=== PATIENT | male | born 1995 | race Two or more races ===

== ENCOUNTER 2020-09-06 14:41 | Emergency (ER) | payer MEDICAID, OTHER, SELFPAY ==
[2020-09-06 15:01] VITALS: BP 121/77; PULSE 78; RESP 16; TEMP 36.4; O2SAT 98; BMI 25.0
[2020-09-06] MEDS: Ibuprofen 800 MG TABLET PO (15:16)
[2020-09-06] MEDS: Lidocaine HCl 2 % MPF 5 ML VIAL INFILTRATI ×2 (15:16→15:17)
--- NOTE | 2020-09-06 16:05 | ED_ITS ---
HPI - Wound/Laceration General Chief Complaint: Wound/Laceration Stated Complaint: L HAND LAC Time Seen by Provider: 09/06/20 16:05 Source: patient Mode of arrival: ambulatory Limitations: no limitations History of Present Illness HPI narrative: Patient presents to ED for left 5th finger laceration caused by stove today. Related Data Allergies Allergy/AdvReac Type Severity Reaction Status Date / Time No Known Allergies Allergy Unverified 07/23/20 19:23 [No Known Allergies*] Review of Systems 2 Constitutional: Constitutional: Reports as per HPI and Reports no additional constitutional complaints Eyes: Eyes: Reports as per HPI and Reports no additional eye complaints ENT: Reports system reviewed and no additional complaints, except as documented and Reports as per HPI Cardiovascular: Cardiovascular: Reports as per HPI and Reports no additional cardiovascular complaints Respiratory: Respiratory: Reports as per HPI and Reports no additional respiratory complaints Gastrointestinal: Gastrointestinal: Reports as per HPI and Reports no additional gastrointestinal complaints Genitourinary: Genitourinary: Reports no additional male genitourinary complaints and Reports as per HPI Musculoskeletal: Musculoskeletal: Reports no additional musculoskeletal complaints and Reports as per HPI Comments: Left 5th finger laceration Neurologic: Reports system reviewed and no additional complaints, except as documented Psychiatric: Psychiatric: Reports no additional psychiatric complaints and Reports as per HPI [facility] Past Medical History Medical History (Updated 09/06/20 @ 16:13 by LEODAN Yuan) No known health problems Social History Social History Smoking Status: Never smoker Use of substances other than those prescribed or required for medical reasons: No Advance Directives: No Advance Directives Information Provided: No Physical Exam Vital Signs: Vital Signs: Vital Signs Temp Pulse Resp BP Pulse Ox 09/06/20 15:01 97.5 F 78 16 121/77 98 Body Mass Index 25.0 Const: General: cooperative, healthy appearing and comfortable Orientation/consciousness: patient oriented x3 HENMT: Head: Yes normal to inspection and Yes No palpable skull fracture present Eyes: General: appearance normal, both eyes and all related structures Neck: Neck: Yes normal visual inspection and Yes full ROM Chest: Chest palpation & inspection: normal inspection of the chest and normal palpation of entire chest wall Resp: Effort & Inspection: normal respiratory effort and able to speak in complete sentences Cardio: Jugular venous distension: no JVD Heart sounds: S1 normal heart sound present and S2 normal heart sound present GI: Inspection: Yes normal to inspection and No abdominal wall ecchymosis Palpation (GI): Soft to palpation, not firm, nontender, no guarding and not rigid : General: No CVA tenderness and Yes no CVA tenderness Back/Spine/Pelvis: Back: no CVA tenderness, No CVA tenderness and No back tenderness Skin: Trauma: laceration ( left 5th finger 1 cm) Neuro: General: patient oriented x3, gait normal and CN's II-XI intact bilaterally Cranial nerves: Yes CN's II-XII intact bilaterally Extrem: Other: left 5th finger 1 cm laceration/tear. Patient has complete range of motion of finger and rest of other fingers on the hand. left Third finger abrasion. Capillary refill is intact. History and physical exam deos not indicate tendon injury. Course Course Course Narrative: Patient will have laceration repair. Reevaluation(s) Reevaluation #1: Wound cleaned with Betadine and chloride normal saline. 5 mL of lidocaine 2% was used to anesthetize left 5th finger. Two sutures were placed 1 cm wound. Skin was romero / weak/and friable. Patient informed once sutures removed skin may fall off and re-grow. Sutures placed to prevent infection Time: 16:11 MDM - Wound/Laceration MDM Narrative Medical decision making narrative: laceration repair Discharge Plan Discharge Clinical Impression: Laceration Patient Disposition: Home, Self-Care Instructions: Finger Laceration (ED), Skin Tear (ED) Additional Instructions: return to the ED for any swelling, redness, pus discharge, foul odor, fever, chills, inability to move finger, or any other concerning symptoms. Sutures should be removed in 9 days at your PCP or ED Stand Alone Forms: Work/School Release Interventions: ED Discharge Assessment Last Done: 09/06/20 16:24 Discharge Date/Time: 09/06/20 16:42 Print Language: Montserratian
--- NOTE | 2020-09-06 16:18 | PC.NURSE ---
CLEANED HAND, PUT A DRY STERILE DRESSING ON L PINKY FINGER.
== END 2020-09-06 16:42 | disposition home or self-care (01) ==
PROVIDERS: Emergency Provider Emergency Medicine
DX: S61.217A Laceration without foreign body of left little finger without damage to nail, initial encounter (principal); S60.417A Abrasion of left little finger, initial encounter; M79.642 Pain in left hand; W26.9XXA Contact with unspecified sharp object(s), initial encounter; Y93.9 Activity, unspecified; Y92.009 Unspecified place in unspecified non-institutional (private) residence as the place of occurrence of the external cause; Y99.9 Unspecified external cause status
CPT/HCPCS: 12001; 90471; 90715; 99283; 99284

== ENCOUNTER 2021-01-23 16:32 | Emergency (ER) | payer MEDICAID, OTHER, SELFPAY ==
[2021-01-23 18:12] VITALS: BP 114/67; PULSE 58; RESP 20; TEMP 37.1; O2SAT 98; BMI 29.6
--- NOTE | 2021-01-23 18:47 | ED.GENADULT ---
HPI - General Adult General Chief complaint: Weakness Stated complaint: headache, weakness Time Seen by Provider: 01/23/21 18:15 Source: patient Mode of arrival: ambulatory Limitations: no limitations History of Present Illness HPI narrative: Patient with multiple complaints had some cold symptoms for last few days complaining of weakness fatigue no fever no cough no shortness of breath Related Data Allergies Allergy/AdvReac Type Severity Reaction Status Date / Time No Known Allergies Allergy Unverified 07/23/20 19:23 [No Known Allergies*] Review of Systems Review of Systems: Yes all other systems are reviewed and are negative [facility] Past Medical History Medical History No known health problems Social History Social History Smoking Status: Never smoker Advance Directives: No Advance Directives Information Provided: No Physical Exam Vital Signs: Vital Signs: Last Vital Signs Temp 98.7 F 01/23/21 18:12 Pulse 58 01/23/21 18:12 Resp 20 01/23/21 18:12 BP 114/67 01/23/21 18:12 Pulse Ox 98 01/23/21 18:12 Body Mass Index 29.6 Appearance: Alert. Oriented X3. No acute distress. Eyes: Pupils equal, round and reactive to light. ENT: Pharynx normal. Neck: Normal inspection. Neck supple. CVS: Normal heart rate and rhythm. Pulses normal. Respiratory: No respiratory distress. Breath sounds normal. Abdomen: Soft and nontender. Bowel sounds are present, no mass palpable, no CVA tenderness Skin: Skin warm and dry. Normal skin color. Normal skin turgor. Extremities: No lower extremity edema. Neuro: Oriented X 3. No motor deficit. No sensory deficit. Medical Decision Making Lab Data Lab results reviewed: Yes I reviewed the patient's lab results. Labs: Lab Results 01/23/21 Range/Units 19:22 COVID-19 (LUÍS) Positive A (Negative) COVID-19 Clin Com See Note Discharge Plan Discharge Clinical Impression: COVID-19 Patient Disposition: Home, Self-Care Instructions: COVID-19 (Coronavirus Disease 2019) (ED) Additional Instructions: Care and cautions advised. Keep social distancing as advised Interventions: ED Discharge Assessment Last Done: 03/20/21 19:44 Discharge Date/Time: 01/23/21 19:45
[2021-01-23 19:34] LABS: COVID-19 Test Positive (Negative)
== END 2021-01-23 19:45 | disposition home or self-care (01) ==
PROVIDERS: Emergency Provider Internal Medicine
DX: U07.1 COVID-19 (principal); R51.9 Headache, unspecified
CPT/HCPCS: 36415; 87635; 99282

== ENCOUNTER 2021-05-24 21:18 | Emergency (ER) | payer MEDICAID, OTHER, SELFPAY ==
--- NOTE | ~2021-05-24 | XR_ITS ---
EXAMINATION: XR FINGER, LEFT, index finger CLINICAL INFORMATION: Finger laceration COMPARISON: None TECHNIQUE: 3 views of the left index finger. FINDINGS: There is no radiopaque foreign body. Bone and joint are normal. XR/XR finger LT min 2V IMPRESSION: Normal left index finger. No radiopaque foreign body.
[2021-05-24 21:43] VITALS: BP 115/69; PULSE 52; RESP 18; TEMP 36.9; O2SAT 98; BMI 26.6
--- NOTE | 2021-05-24 23:00 | ED_ITS ---
HPI - Wound/Laceration General Chief Complaint: Wound/Laceration Stated Complaint: Finger laceration Time Seen by Provider: 05/24/21 22:54 Source: patient Mode of arrival: ambulatory Limitations: language barrier History of Present Illness HPI narrative: A 25-year-old male with no significant past medical history presents with laceration to his left index finger. He accidentally cut himself on a kiki knife, applied a bandage but was unable to control the bleeding. He does not know when his last Tdap vaccine was updated. Does not describe any other symptoms, and has full range of motion to the extremity. Onset (ago): hour(s) (Within the hour of arrival) Extremity Location: left: hand (Index finger) Place: home Patient tetanus UTD: No Context: accidental Associated symptoms: pain (And bleeding) Treatments prior to arrival: bandage Related Data Allergies Allergy/AdvReac Type Severity Reaction Status Date / Time No Known Allergies Allergy Unverified 07/23/20 19:23 [No Known Allergies*] Review of Systems Review of Systems: Constitutional: No Fever, No Chills ENT/Mouth: No Ear Pain, No Hoarseness, No sore throat Eyes: No Eye Pain, No Swelling, No Redness, No Foreign Body Cardiovascular: No Chest Pain, No SOB Respiratory: No Cough, No Dyspnea Gastrointestinal: No Nausea, No Vomiting, No Diarrhea, No abdominal Pain Genitourinary: No Dysuria, No Hematuria Musculoskeletal: positive left index finger pain, No Myalgias, No Joint Swelling Skin: Positive left index finger laceration, No rash Neuro: No Weakness, No Numbness, No Paresthesias, No Loss of Consciousness, No Dizziness, No Headache Psych: No Anxiety/Panic, No Depression Heme/Lymph: no easy bruising, no Lymphadenopathy Endocrine: No Polyuria, No Polydipsia Yes all other systems are reviewed and are negative [facility] Past Medical History Attestation statement: The following information was validated with the patient. Source: old records reviewed Medical History No known health problems Social History Social History Advance Directives: No Advance Directives Information Provided: No Physical Exam Vital Signs: Vital Signs: Last Vital Signs Temp 98.5 F 05/24/21 21:43 Pulse 52 05/24/21 21:43 Resp 18 05/24/21 21:43 BP 115/69 05/24/21 21:43 Pulse Ox 98 05/24/21 21:43 Body Mass Index 26.6 Appearance: Alert. Oriented X3. No acute distress. Eyes: Pupils equal, round and reactive to light. ENT: Pharynx normal. Neck: Normal inspection. Neck supple. CVS: Normal heart rate and rhythm. Pulses normal. Respiratory: No respiratory distress. Breath sounds normal. Abdomen: Soft and nontender. Skin: Positive 3 cm laceration across the tip of the left index finger, Skin warm and dry. Normal skin color. Normal skin turgor. Extremities: No lower extremity edema. Neuro: No motor deficit. No sensory deficit. Course Course Course Narrative: 25-year-old male presents with laceration to left index finger. Tdap was updated, x-rays negative for fracture, foreign body or bone involvement. Patient has full range of motion to all extremities, no indication of tendon injury, brisk capillary refill. No nail involvement. Prepped and draped in sterile fashion. Irrigated with copious amounts of normal saline with Betadine cleanse. Approximately 10 mL of blood loss. Please refer to procedure note for full details. Approximately 30 minute status post laceration repair, patient continues with brisk capillary refill, full range of motion, indication of tendon injury, patient tolerated procedure well. Patient verbalized understanding of and agrees to plan of care discharge home. sanitary engineering teacher utilized for all correspondence. Google translate utilized for discharge instructions. Procedures Laceration Laceration 1: Site: hand Side (If applicable): left (Index finger) Size (cm): 3 Description: linear Depth: simple, single layer Local Anesthetic: lidocaine 2% Amount of anesthesia used (mL): 4 Pre-repair: wound explored, irrigated extensively and deep structures intact Skin layer closed with: nylon Size (cm): 4-0 Number of sutures: 8 Technique: simple, interrupted MDM - Wound/Laceration Differential Diagnosis Differential diagnosis: Likely laceration Medical Records Attestation: I reviewed the patient's medical records. Discharge Plan Discharge Clinical Impression: Laceration Patient Disposition: Home, Self-Care Instructions: Diphtheria/Acellular Pertussis/Tetanus Booster Vaccine (Tdap) (By..., Care For Your Stitches (ED), Finger Laceration (ED) Additional Instructions: Evalu? la laceraci?n del dedo ?ndice patrick. Colocamos 8 suturas. Regrese en 10 d?as para que le quiten las suturas. Si nota signos o s?ntomas de infecci?n, regrese antes. Siga las instrucciones para el cuidado de las heridas. Seth por elegir shalom departamento de emergencias para green evaluaci?n. Kt un seguimiento con green m?dico de atenci?n primaria seg?n sea necesario. Regrese al departamento de emergencias por cualquier s?ntoma nuevo, preocupante o que empeore You evaluated for laceration to the left index finger. We placed 8 sutures. Please return in 10 days to have sutures removed. If you notice signs or symptoms of infection please return sooner. Please follow wound care instructions. Thank you for choosing this emergency department for evaluation. Please follow-up with primary care physician as needed. Return to the emergency department for any new, concerning, or worsening symptoms.
[2021-05-24] MEDS: Lidocaine HCl 2 % MPF 5 ML VIAL SUBCUT (23:18)
[2021-05-24] MEDS: Diphth,Pertus(ACell),Tet Adult 0.5 ML SYRINGE IM (23:19)
== END 2021-05-25 00:47 | disposition home or self-care (01) ==
PROVIDERS: Emergency Provider Internal Medicine
DX: S61.211A Laceration without foreign body of left index finger without damage to nail, initial encounter (principal); W26.0XXA Contact with knife, initial encounter; Y93.9 Activity, unspecified; Y92.009 Unspecified place in unspecified non-institutional (private) residence as the place of occurrence of the external cause; Y99.9 Unspecified external cause status
CPT/HCPCS: 12002; 73140; 90471; 90715; 99283; 99284

== ENCOUNTER 2021-05-31 09:27 | Emergency (ER) | payer MEDICAID, OTHER, SELFPAY ==
[2021-05-31 09:33] VITALS: BP 111/54; PULSE 57; RESP 16; TEMP 36.2; O2SAT 98; BMI 34.2
--- NOTE | 2021-05-31 09:53 | ED_ITS ---
HPI - Extremity Problem General Chief complaint: Extremity Injury, Upper Stated complaint: suture removal Time Seen by Provider: 05/31/21 09:53 Source: patient Mode of arrival: ambulatory Limitations: no limitations History of Present Illness HPI Narrative: Patient had a laceration repair done 8 days ago and is here for suture removal. No complaints Related Data Allergies Allergy/AdvReac Type Severity Reaction Status Date / Time No Known Allergies Allergy Verified 05/31/21 09:35 [No Known Allergies*] Review of Systems Review of Systems: Yes all other systems are reviewed and are negative Constitutional: Constitutional: Reports no additional constitutional complaints, Denies body ache(s), Denies chills, Denies fever(s), Denies headache(s) and Denies weakness Eyes: Eyes: Reports no additional eye complaints and Denies change in vision ENT: Reports system reviewed and no additional complaints, except as documented, Denies dizziness, Denies headache(s), Denies nasal congestion, Denies nasal discharge and Denies neck pain Cardiovascular: Cardiovascular: Reports no additional cardiovascular complaints, Denies chest pain, Denies leg edema and Denies dyspnea Respiratory: Respiratory: Reports no additional respiratory complaints, Denies cough and Denies dyspnea Gastrointestinal: Gastrointestinal: Reports no additional gastrointestinal complaints, Denies abdominal pain, Denies diarrhea, Denies nausea and Denies vomiting Genitourinary: Genitourinary: Denies urinary incontinence Musculoskeletal: Musculoskeletal: Reports no additional musculoskeletal c omplaints, Denies back pain, Denies arthralgias, Denies joint swelling, Denies neck pain, Denies numbness and Denies tingling Integumentary/Breasts: Skin/Breast: Reports system reviewed and no additional complaints, except as docu and Denies rash Neurologic: Reports system reviewed and no additional complaints, except as documented, Denies Abnormal speech present, Denies dizziness, Denies headache(s), Denies numbness, Denies tingling and Denies weakness PMFSH Past Medical History Attestation statement: The following information was validated with the patient. Source: old records reviewed and nursing notes reviewed Medical History No known health problems Social History Social History Advance Directives: No Advance Directives Information Provided: No Physical Exam Vital Signs: Vital Signs: Last Vital Signs Temp 97.1 F 05/31/21 09:33 Pulse 57 05/31/21 09:33 Resp 16 05/31/21 09:33 BP 111/54 L 05/31/21 09:33 Pulse Ox 98 05/31/21 09:33 Body Mass Index 34.2 Const: General: cooperative, healthy appearing, comfortable and no acute distress Orientation/consciousness: patient oriented x3 Limitations: no limitations HENMT: Head: Yes normal to inspection Ears: hearing grossly normal bilaterally General nose exam: Normal external nose present Face and sinus: Yes normal facial exam Mouth: Normal oral and palatal mucosa present Throat: Yes posterior oropharynx normal Eyes: General: appearance normal, both eyes and all related structures Pupils: Equal, round and reactive pupils present Neck: Neck: Yes normal visual inspection Chest: Chest palpation & inspection: normal inspection of the chest Resp: Effort & Inspection: normal respiratory effort Auscultation: clear to auscultation bilaterally Cardio: Rate: regular rate Rhythm: regular rhythm Peripheral pulses: Peripheral pulses 2+ throughout GI: Inspection: Yes normal to inspection Palpation (GI): Soft to palpation and nontender Auscultation: normal bowel sounds Back/Spine/Pelvis: Thoracic/Lumbar Spine: thoracic and lumbar spine normal to inspection Skin: General skin exam: no rashes or lesions noted Neuro: General: patient oriented x3, no focal motor deficits and normal sensation to monofilament Cranial nerves: Yes Equal, round and reactive pupils present Cognition (Neuro): normal cognition Speech: No Abnormal speech present Gait exam (Neuro): Normal gait present Motor exam (neuro): 5/5 motor strength present throughout Extrem: Other: To the dorsal aspect of the left index finger sutures are present Full range of motion. Sensation intact distally General: Yes normal to i nspection Course Course Course Narrative: Sutures removed. See procedure note. Patient well-appearing. Reviewed worrisome signs and symptoms and when to return to the emergency department. Comfortable discharge home. Procedures Procedure Narrative Procedure Narrative: Eight sutures removed from the left index finger. Area cleansed with water and hydrogen peroxide. Dressing placed Discharge Plan Discharge Clinical Impression: Visit for suture removal Patient Disposition: Home, Self-Care Instructions: Stitches Removal (ED) Referrals: Physician,Unknown [Primary Care Provider] - 2 days Interventions: ED Discharge Assessment Last Done: 05/31/21 10:07 Discharge Date/Time: 05/31/21 10:08
== END 2021-05-31 10:08 | disposition home or self-care (01) ==
PROVIDERS: Emergency Provider Emergency Medicine Emergency Medical Services
DX: Z48.02 Encounter for removal of sutures (principal); S61.211D Laceration without foreign body of left index finger without damage to nail, subsequent encounter; W45.8XXD Other foreign body or object entering through skin, subsequent encounter
CPT/HCPCS: 99283

== ENCOUNTER 2021-06-16 18:35 | Emergency (ER) | payer MEDICAID, OTHER, SELFPAY ==
[2021-06-16 19:18] VITALS: BP 112/65; PULSE 68; RESP 16; TEMP 36; O2SAT 96; BMI 28.4
[2021-06-16 21:47] VITALS: BP 110/68; PULSE 56; RESP 16; O2SAT 98
[2021-06-16 21:56] LABS: Influenza A PCR NEGATIVE (Negative); Influenza B PCR NEGATIVE (Negative); Resp Syncy Virus RNA Qual PCR NEGATIVE (Negative); SARS COV2 PCR INHOUSE NEGATIVE (Negative)
--- NOTE | 2021-06-16 22:28 | ED.GENADULT ---
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 Now feeling slightly better drinking enough fluids urinating well. No light sensitivity no history of migraines in the past Related Data Allergies Allergy/AdvReac Type Severity Reaction Status Date / Time No Known Allergies Allergy Verified 06/16/21 19:23 [No Known Allergies*] Review of Systems Review of Systems: Yes all other systems are reviewed and are negative [facility] Past Medical History Medical History No known health problems Social History Social History Advance Directives: No Advance Directives Information Provided: No Physical Exam Vital Signs: Vital Signs: Last Vital Signs Temp 96.8 F 06/16/21 19:18 Pulse 56 06/16/21 21:47 Resp 16 06/16/21 21:47 BP 110/68 06/16/21 21:47 Pulse Ox 98 06/16/21 21:47 Body Mass Index 28.4 Appearance: Alert. Oriented X3. No acute distress. Eyes: PERRLA, No Nystagmus ENT: Pharynx normal. Oral Mucosa moist Neck: Normal inspection. Neck supple. CVS: Normal heart rate and rhythm. Pulses normal. Respiratory: No respiratory distress. Equal air entry bilateral, no wheezing/rales/rhonchi Abdomen: Soft and nontender. Bowel sounds are present, no mass palpable, no CVA tenderness Skin: Skin warm and dry. Normal skin color. Normal skin turgor. Extremities: No lower extremity edema. No calf tenderness Neuro: Oriented X 3. No motor deficit. No sensory deficit.No cerebellar signs , cranial nerves II-XII intact Medical Decision Making MDM Narrative Medical decision making narrative: Patient's symptoms likely from Heat exhaustion feeling better since he is indoor will give him p.o. fluids checked the urine Lab Data Lab results reviewed: Yes I reviewed the patient's lab results. Labs: Lab Results 06/16/21 06/16/21 Range/Units 21:08 22:39 Urine Color YELLOW Urine Appearance CLEAR Urine pH 6.5 (5.0-8.0) Ur Specific [place] 1.025 (1.005-1.025) Urine Protein TRACE (NEG-TRACE) MG/DL Urine Glucose (UA) NEG (NEG) MG/DL Urine Ketones 15 (NEG) MG/DL Urine Blood NEG (NEG) Urine Nitrite NEG (NEG) Ur Leukocyte Esterase NEG (NEG) Coronavirus (PCR) NEGATIVE (Negative) Influenza Type A (PCR) NEGATIVE (Negative) Influenza Type B (PCR) NEGATIVE (Negative) RSV RNA Qual (PCR) NEGATIVE (Negative) Discharge Plan Discharge Clinical Impression: Heat exhaustion Qualifiers: Encounter type: initial encounter Qualified Code(s): T67.5XXA - Heat exhaustion, unspecified, initial encounter Patient Disposition: Home, Self-Care Instructions: Heat Exhaustion (ED) Additional Instructions: Drink plenty of fluids stay in shaded and cool area Take frequent breaks Nessa muchos l?quidos, permanezca en un lugar fresco y con nasra. Megan descansos frecuentes Print Language: [place]
[2021-06-16 22:49] LABS: Glucose Urine UA NEG (NEG); Leukocyte Esterase Urine NEG (NEG); Nitrite Urine NEG (NEG); PH 6.5 (5.0-8.0); Specific Gravity - Urine 1.025 (1.005-1.025); Urine Blood NEG (NEG); Urine Ketones 15 MG/DL (NEG); Urine Protein TRACE MG/DL (NEG-TRACE)
[2021-06-16 22:54] LABS: Appearance Urine CLEAR; Color Urine YELLOW
== END 2021-06-16 23:30 | disposition home or self-care (01) ==
PROVIDERS: Emergency Provider Internal Medicine
DX: T67.5XXA Heat exhaustion, unspecified, initial encounter (principal); X58.XXXA Exposure to other specified factors, initial encounter; Y93.9 Activity, unspecified; Y92.9 Unspecified place or not applicable; Y99.9 Unspecified external cause status; Z20.822 Contact with and (suspected) exposure to COVID-19
CPT/HCPCS: 0241U; 36415; 81003; 99283; 99284

== ENCOUNTER 2022-03-23 22:22 | Emergency (ER) | payer MEDICAID, OTHER, SELFPAY ==
[2022-03-23 22:27] VITALS: BP 111/75; PULSE 68; RESP 18; TEMP 36.4; O2SAT 99; BMI 28.5
== END 2022-03-24 02:57 | disposition left against medical advice (07) ==
PROVIDERS: Emergency Provider Emergency Medicine
DX: L50.0 Allergic urticaria (principal)
CPT/HCPCS: 99283

== ENCOUNTER 2023-01-05 09:44 | Emergency (ER) | payer MEDICAID, OTHER, SELFPAY ==
[2023-01-05 10:01] VITALS: BP 127/58; PULSE 65; RESP 16; TEMP 36.7; O2SAT 97; BMI 29.0
--- NOTE | 2023-01-05 10:02 | ED.GENADULT ---
HPI - General Adult General Chief complaint: Eye Problems <Ryley Corral - Last Filed: 01/05/23 10:05> Stated complaint: metal in eye <Ryley Corral - Last Filed: 01/05/23 10:05> Time Seen by Provider: 01/05/23 12:49 <Ryley Corral - Last Filed: 01/05/23 10:05> Source: patient and historic interpreter <LEODAN Kelly - Last Filed: 01/05/23 13:18> Mode of arrival: ambulatory <LEODAN Kelly - Last Filed: 01/05/23 13:18> Limitations: no limitations <LEODAN Kelly - Last Filed: 01/05/23 13:18> History of Present Illness HPI narrative: 27 yo Martiniquais speaking male presents to the ER for evaluation of right eye pain for the last 3 weeks after he got a 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 He states he was not wearing safety glasses when a spark hit him in the eye. Since then he has had pain in the upper lateral portion of the eye, worse when eyes are closed. It feels like sand. He reports intermittent watering and blurred vision. He does not wear contacts or glasses, does not have an eye doctor. No discharge. <LEODAN Kelly - Last Filed: 01/05/23 13:18> MD complaint: right eye pain <LEODAN Kelly - Last Filed: 01/05/23 13:18> Onset (ago): week(s) (3) <LEODAN Kelly - Last Filed: 01/05/23 13:18> Location: eyes <LEODAN Kelly - Last Filed: 01/05/23 13:18> Radiation: non-radiation <LEODAN Kelly Last Filed: 01/05/23 13:18> Severity: moderate <LEODAN Kelly Last Filed: 01/05/23 13:18> Quality: burning and aching <LEODAN Kelly Last Filed: 01/05/23 13:18> Pain Consistency: intermittent <LEODAN Kelly Last Filed: 01/05/23 13:18> Relieving factors: none <LEODAN Kelly - Last Filed: 01/05/23 13:18> Exacerbating factors: none <LEODAN Kelly - Last Filed: 01/05/23 13:18> Associated symptoms: denies other symptoms <LEODAN Kelly - Last Filed: 01/05/23 13:18> Treatments prior to arrival: none <LEODAN Kelly - Last Filed: 01/05/23 13:18> Related Data Home medications: Previous Rx's Medication Instructions Recorded erythromycin 5 mg/gram (0.5 %) eye 0.5 inch ophthalmic (eye) TID #3.5 01/05/23 ointment grams <Ryley Corral - Last Filed: 01/05/23 10:05> Allergies/adverse reactions: Allergies Allergy/AdvReac Type Severity Reaction Status Date / Time No Known Allergies Allergy Verified 06/16/21 19:23 [No Known Allergies*] <Ryley Corral - Last Filed: 01/05/23 10:05> Review of Systems Review of Systems: Yes all other systems are reviewed and are negative <LEODAN Kelly - Last Filed: 01/05/23 13:18> [facility] Past Medical History Medical History: Medical History No known health problems <Ryley Corral - Last Filed: 01/05/23 10:05> Social History Social History: Social History Advance Directives: No <Ryley Corral - Last Filed: 01/05/23 10:05> Physical Exam ED Vital Signs: Vital Signs - 24 hr 01/05/23 10:01 Temperature 98.1 F Pulse Rate 65 Respiratory Rate 16 Blood Pressure 127/58 L Pulse Oximetry 97 Oxygen Delivery Method Room Air BMI result Body Mass Index 29.0 <Ryley Corral - Last Filed: 01/05/23 10:05> Vital Signs - 24 hr 01/05/23 10:01 Temperature 98.1 F Pulse Rate 65 Respiratory Rate 16 Blood Pressure 127/58 L Pulse Oximetry 97 Oxygen Delivery Method Room Air BMI result Body Mass Index 29.0 <LEODAN Kelly - Last Filed: 01/05/23 13:18> Appearance: Alert. Oriented X3. No acute distress. HEENT: normal external inspection, no lid swelling. minimal conjunctival injection inferiorly. no discharge. florescence exam without uptake. no visualized FB CVS: Normal heart rate and rhythm. Pulses normal. Respiratory: No respiratory distress. Skin: Skin warm and dry. Normal skin color. Normal skin turgor. No rashes. Extremities: normal inspection x4 Neuro: Oriented X 3. No motor deficit. No sensory deficit. <LEODAN Kelly - Last Filed: 01/05/23 13:18> Course Course Course Narrative: 27-year-old primarily Martiniquais-speaking male who denies any past medical history presents for evaluation of right eye pain. Patient reports that 3 weeks ago he was working with metal. He believes ?I got a tiny metal chip in my eye. ? He felt as if it were at some point we decided to have this. He has not yet seen any medical providers for this issue. Plan to be seen in 81 but is available <Ryley Corral - Last Filed: 01/05/23 10:05> Reevaluation(s) Reevaluation #1: No visualied FB or metal in the eye. Will prescribe empiric abx ointment and refer to Opthomology for further evaluation. Patient agrees with plan - staff veterinarian used to discuss importance of outpatient follow up and all questions were answered <LEODAN Kelly - Last Filed: 01/05/23 13:18> Medications Administered Discontinued Medications Generic Name Dose Route Start Last Admin Trade Name Freq PRN Reason Stop Dose Admin Fluorescein Sodium 1 strip 01/05/23 12:58 01/05/23 13:02 Fluorescein Sodium Strip EYE-RIGHT 01/05/23 12:59 1 strip ONCE ONE Administration Tetracaine HCl 1 drop 01/05/23 12:58 01/05/23 13:02 Tetracaine Hcl/Pf 0.5% Oph Sigrid 4 Ml Drops EYE-RIGHT 01/05/23 12:59 1 drop ONCE ONE Administration <Ryley Corral - Last Filed: 01/05/23 10:05> Medications Administered Discontinued Medications Generic Name Dose Route Start Last Admin Trade Name Freq PRN Reason Stop Dose Admin Fluorescein Sodium 1 strip 01/05/23 12:58 01/05/23 13:02 Fluorescein Sodium Strip EYE-RIGHT 01/05/23 12:59 1 strip ONCE ONE Administration Tetracaine HCl 1 drop 01/05/23 12:58 01/05/23 13:02 Tetracaine Hcl/Pf 0.5% Oph Sigrid 4 Ml Drops EYE-RIGHT 01/05/23 12:59 1 drop ONCE ONE Administration <LEODAN Kelly - Last Filed: 01/05/23 13:18> Medical Decision Making Differential Diagnosis Differential Diagnoses: The differential diagnosis associated with the presentation includes <LEODAN Kelly - Last Filed: 01/05/23 13:18> corneal abrasion, foriegn body in the eye, conjunctivitis, iritis, uveitis <LEODAN Kelly - Last Filed: 01/05/23 13:18> External Record Review External record reviewed: Prior outpatient labs <LEODAN Kelly - Last Filed: 01/05/23 13:18> Prescription Management I considered prescription management with: Antibiotic <LEODAN Kelly - Last Filed: 01/05/23 13:18> Critical Care Time Critical Care Time Critical Care Time: No <LEODAN Kelly - Last Filed: 01/05/23 13:18> Discharge Plan Discharge Clinical Impression: Eye pain <Ryley Corral - Last Filed: 01/05/23 10:05> Patient Disposition: Home, Self-Care <Ryley Corral - Last Filed: 01/05/23 10:05> Instructions: Eye Pain (ED) <Ryley Corral - Last Filed: 01/05/23 10:05> Additional Instructions: Follow up with the eye doctor - call for an appointment Seguimiento con el oftal?logo: llnancy para programar derrick shweta <Ryley Corral - Last Filed: 01/05/23 10:05> Prescriptions: New erythromycin 5 mg/gram (0.5 %) ointment 0.5 inch ophthalmic (eye) TID Qty: 3.5 0RF <Ryley Corral - Last Filed: 01/05/23 10:05> Referrals: Eliu Alexander [Physician] - (right eye pain s/p ?FB ?metal in the eye 3 weeks ago) <Ryley Corral - Last Filed: 01/05/23 10:05>
[2023-01-05] MEDS: Fluorescein Sodium STRIP 1 STRIP EYE-RIGHT (13:02)
[2023-01-05] MEDS: Tetracaine HCl/PF 0.5% Oph Sol 4 ML DROPS 1 DROP EYE-RIGHT (13:02)
== END 2023-01-05 13:18 | disposition home or self-care (01) ==
PROVIDERS: Emergency Provider Student in an Organized Health Care Education/Training Program
DX: H57.13 Ocular pain, bilateral (principal)
CPT/HCPCS: 99282; 99283

== ENCOUNTER 2023-04-14 15:58 | Outpatient (REF) | payer MEDICAID, OTHER, SELFPAY ==
--- NOTE | ~2023-04-14 | XR_ITS ---
EXAMINATION: XR KNEE, LEFT CLINICAL INFORMATION: Pain. Versus a referral for COMPARISON: None available. TECHNIQUE: Four views of the left knee. FINDINGS: Bones and soft tissues are normal. No fracture or joint effusion. Alignment is anatomic. Joint spaces are well maintained. No abnormal soft tissue calcification. XR/XR knee LT 4V IMPRESSION: Unremarkable left knee exam.
== END 2023-04-14 15:59 | disposition home or self-care (01) ==
LOC: HO.HHCX 15:58
PROVIDERS: Visit Provider Registered Nurse
DX: M25.562 Pain in left knee (principal)
CPT/HCPCS: 73564

== ENCOUNTER 2023-05-29 15:31 | Outpatient (REF) | payer MEDICAID, OTHER, SELFPAY ==
[2023-05-29 16:56] LABS: Alanine Aminotransferase 52 U/L (0-40); Albumin Level 4.4 g/dL (3.5-5.0); Alkaline Phosphatase 83 U/L (39-117); Anion Gap 12 (12-20); Aspartate Amino Transferase 26 U/L (5-37); Bilirubin Total 1.1 mg/dL (0.0-1.0); Blood Urea Nitrogen 15 mg/dL (9-16); Calcium 9.6 mg/dL (8.4-10.2); Carbon Dioxide 31 mmol/L (22-29); Chloride 103 mmol/L (96-108); Estimated Glomerular Filt Rate > 60; Glucose Random 87 mg/dL (60-115); Potassium 4.5 mmol/L (3.3-5.1); Sodium 141 mmol/L (135-145); Total Protein 7.7 g/dL (6.5-8.0)
== END 2023-05-29 15:32 | disposition home or self-care (01) ==
LOC: HO.HHCL 15:31
PROVIDERS: Visit Provider Registered Nurse
DX: B35.1 Tinea unguium (principal)
CPT/HCPCS: 36415; 80053

== ENCOUNTER 2023-08-27 21:59 | Emergency (ER) | payer MEDICAID, OTHER, SELFPAY ==
[2023-08-27 22:02] VITALS: BP 119/70; PULSE 59; RESP 16; TEMP 36.6; O2SAT 99; BMI 32.1
--- NOTE | 2023-08-28 00:34 | ED_ITS ---
HPI - Wound/Laceration General Chief Complaint: Wound/Laceration Stated Complaint: Cat bite Time Seen by Provider: 08/28/23 00:17 Source: patient Mode of arrival: ambulatory Limitations: no limitations History of Present Illness HPI narrative: Patient comes to the emergency room complaining of multiple cat bites to the right hand especially index finger. Patient states that earlier today, approximately 14 hours ago, patient was trying to feed his cat, for no reason, patient attacked him and bit him multiple times in the hand and the index finger. Patient states that the cat is outdoor, recently has been coming back home with multiple injuries and bite wounds from cat fights. Patient states that the cat is not up-to-date with his immunizations. Patient had a rabies shot several years ago, but it is not up-to-date. Patient states that he called animal control and they picked up the cat and took him away. Patient states that he will no longer keep the cat. Patient does not know when his last [facility] immunization was Related Data Previous Rx's Medication Instructions Recorded erythromycin 5 mg/gram (0.5 %) eye 0.5 inch ophthalmic (eye) TID #3.5 01/05/23 ointment grams Allergies Allergy/AdvReac Type Severity Reaction Status Date / Time No Known Allergies Allergy Verified 06/16/21 19:23 [No Known Allergies*] Review of Systems Review of Systems: Constitutional : No Weight loss, No Fever, No Chills, No Night Sweats, No Fatigue, No Malaise ENT/Mouth : No Hearing loss, No Ear Pain, No Nasal Congestion, No Sinus Pain, No Hoarseness, No sore throat, No Rhinorrhea, No Swallowing Difficulty Eyes: No Eye Pain, No Swelling, No Redness, No Foreign Body, No Discharge, No Vision Changes Cardiovascular : No Chest Pain, No SOB, No Dyspnea on Exertion, No Orthopnea, No Edema, No Palpitations Respiratory : No Cough, No Sputum, No Wheezing, No Smoke Exposure, No Dyspnea Gastrointestinal : No Nausea, No Vomiting, No Diarrhea, No Constipation, No abdominal Pain, No Hematochezia, No Melena Genitourinary : no irregular bleeding, No Dysuria, No Urinary Frequency, No Hematuria, No Urinary Incontinence, No Urgency, No Flank Pain, No Urinary Flow Changes, No Hesitancy Musculoskeletal : No joint pain, No Myalgias, No Joint Swelling Skin : Complaining of pain and swelling of the right index finger and right hand with multiple puncture wounds/bites Neuro : No Weakness, No Numbness, No Paresthesias, No Loss of Consciousness, No Dizziness, No Headache Psych : No Anxiety/Panic, No Depression, No SI/HI/AH/VH, No Social Issues, Heme/Lymph: No Bruising, No Bleeding,No Lymphadenopathy Endocrine : No Polyuria, No Polydipsia, No Temperature Intolerance PMF Past Medical History Medical History No known health problems Social History Social History Advance Directives: No Advance Directives Information Provided: No Physical Exam Vital Signs: Vital Signs: Last Vital Signs Temp 97.8 F 08/27/23 22:02 Pulse 59 08/27/23 22:02 Resp 16 08/27/23 22:02 BP 119/70 08/27/23 22:02 Pulse Ox 99 08/27/23 22:02 O2 Del Method Room Air 08/27/23 22:02 BMI result Body Mass Index 32.1 Const: Other: Appearance: Alert. Oriented X3. No acute distress. Eyes: Pupils equal, round and reactive to light. ENT: Pharynx normal. Neck: Normal inspection. Neck supple. No lymph nodes noted. No crepitus CVS: Normal heart rate and rhythm. Pulses normal. Normal S1 and S2 Respiratory: No respiratory distress. Breath sounds normal. No Wheezing. No rales Abdomen: Soft and nontender. No rigidity. No distention. Skin: Skin warm and dry. Normal skin color. Normal skin turgor. See extremity below Extremities: No lower extremity edema. Patient has multiple puncture wounds to the right index in both dorsal and palmar aspect, palm and dorsum of hand. The right index finger is swollen. No erythema, no purulent discharge Neuro: Oriented X 3. No motor deficit. No sensory deficit. Moving all extremities. No slurred speech. CN 2 through 12 grossly intact Psych: calm, cooperative, normal affect Medical Decision Making Medical Decision Making MDM Narrative: -discussed with the patient that the cat's recent history of cat bites, not being up-to-date with his immunizations it is concerning, I strongly recommend for the patient to get rabies immunoglobulin and vaccine. Patient agreeable. Also, patient states that he does not remember when he got his last tetanus shot, given also today. Also, patient received the 1st dose of Augmentin in the emergency room. Patient agreeable to get the whole series of rabies shots -also, I discussed with the patient to keep a close eye on his hand. If it be comes more swollen, erythematous, develops fever chills, severe pain, pus drainage, patient is to come immediately to the emergency room for admission Differential Diagnosis Differential Diagnoses: The differential diagnosis associated with the presentation includes (Cat bite, animal bite, puncture wound) Critical Care Time Critical Care Time Critical Care Time: Yes Total Critical Care Time: 45 Attestation: I have personally provided critical care time. Time includes review of lab data, radiology results, discussion with consultants, and monitoring for potential decompensation. Intervention performed as documented. Discharge Plan Discharge Clinical Impression: Cat bite of finger Patient Disposition: Home, Self-Care Instructions: Animal Bite (ED), Rabies Immune Globulin (By injection), Rabies Vaccine (By injection), Rabies (ED) Additional Instructions: Please follow-up with your primary care physician tomorrow. If you have any worsening or new symptoms, please return to the emergency room or call 911 Prescriptions: No Action erythromycin 5 mg/gram (0.5 %) ointment 0.5 inch ophthalmic (eye) TID Qty: 3.5 0RF Stand Alone Forms: Work/School Release
[2023-08-28] MEDS: Amoxicillin/Potassium Clav 875 MG TABLET PO (01:00)
[2023-08-28] MEDS: Ibuprofen 600 MG TABLET PO (01:00)
[2023-08-28] MEDS: Diphth,Pertus(ACell),Tet Adult 0.5 ML SYRINGE IM (01:11)
[2023-08-28] MEDS: Rabies Vaccine, Human Diploid (Imovax) 1 ML VIAL IM (01:15)
[2023-08-28] MEDS: Rabies Immune Globulin/PF 900 UNIT/3 ML VIAL 1696.44 UNIT IM (01:22)
--- NOTE | 2023-08-28 03:48 | PC.NURSE ---
late entry- pt provided with discharge instructions utilizing historic interpreter. pt provided with copies and rabies vaccine card. rabies order form and vaccine documentation faxed to [facility] pharmacy, and [place] [facility]. pt calm and cooperative medicated according to ninfa, cms intact, with stiffness in R index finger per pt pt verbalized understanding of discharge plan
== END 2023-08-28 03:51 | disposition home or self-care (01) ==
PROVIDERS: Emergency Provider Emergency Medicine
DX: S61.250A Open bite of right index finger without damage to nail, initial encounter (principal); S61.451A Open bite of right hand, initial encounter; W55.01XA Bitten by cat, initial encounter; Y93.89 Activity, other specified; Y92.009 Unspecified place in unspecified non-institutional (private) residence as the place of occurrence of the external cause; Y99.9 Unspecified external cause status; Z20.3 Contact with and (suspected) exposure to rabies
CPT/HCPCS: 90375; 90471; 90472; 90675; 90715; 96372; 99284

== ENCOUNTER 2023-08-31 14:28 | Outpatient (REF) | payer MEDICAID, OTHER, SELFPAY | END 2023-08-31 14:29 | disposition home or self-care (01) | LOC: HO.MDS 14:28 | PROVIDERS: Visit Provider Emergency Medicine | DX: Z20.3 Contact with and (suspected) exposure to rabies (principal); T14.8XXD Other injury of unspecified body region, subsequent encounter; W55.01XD Bitten by cat, subsequent encounter | CPT/HCPCS: 90471; 90675 ==

== ENCOUNTER 2023-09-04 14:46 | Outpatient (REF) | payer MEDICAID, OTHER, SELFPAY | END 2023-09-04 14:47 | disposition home or self-care (01) | LOC: HO.MDS 14:46 | PROVIDERS: Visit Provider Emergency Medicine | DX: Z20.3 Contact with and (suspected) exposure to rabies (principal); T14.8XXD Other injury of unspecified body region, subsequent encounter; W55.01XD Bitten by cat, subsequent encounter | CPT/HCPCS: 90471; 90675 ==

== ENCOUNTER 2023-09-11 10:30 | Outpatient (REF) | payer MEDICAID, OTHER, SELFPAY | END 2023-09-11 10:31 | disposition home or self-care (01) | LOC: HO.MDS 10:30 | PROVIDERS: Visit Provider Emergency Medicine | DX: Z20.3 Contact with and (suspected) exposure to rabies (principal); T14.8XXD Other injury of unspecified body region, subsequent encounter; W55.01XD Bitten by cat, subsequent encounter | CPT/HCPCS: 90471; 90675 ==